=== PATIENT | female | born 1975 | race Two or more races ===

== ENCOUNTER 2021-07-29 17:36 | Emergency (ER) | payer MEDICAID, OTHER ==
[~2021-07-29] VITALS: Ht 162.6 cm; Wt 108.9 kg
[2021-07-29 17:44] VITALS: BP 151/98
== END 2021-07-29 18:52 | disposition left against medical advice (07) ==
LOC: ER 18:03
DX: Z53.21 Procedure and treatment not carried out due to patient leaving prior to being seen by health care provider

== ENCOUNTER 2023-11-08 02:57 | Inpatient (IN) | payer MEDICAID ==
[~2023-11-08] VITALS: Ht 162.6 cm; Wt 106.2 kg
[2023-11-08 03:54] LABS: Basophils # (auto) 0.1 10 ^3/uL (0-0.2); Eosinophils # (auto) 0.1 10 ^3/uL (0-0.8); Eosinophils % (auto) 2.3 % (0.0-7.0); Hemoglobin 10.7 g/dL (12.2-16.2); Mean Corpuscular Hemoglobin 24.6 pg (28.0-32.0); Monocytes # (auto) 0.5 10 ^3/uL (0-1.3); Neutrophils # (auto) 2.8 10 ^3/uL (1.6-8.6)
[2023-11-08 03:57] LABS: Basophils % (auto) 1.4 % (0.0-2.0); Lymphocytes # (auto) 2.8 10 ^3/uL (0.4-5.4); Lymphocytes % (auto) 43.7 % (10.0-50.0); Mean Corpuscular Hgb Conc. 31.4 g/dL (32.0-36.0); Mean Corpuscular Volume 78.3 fL (80.0-100.0); Monocytes % (auto) 7.9 % (0.0-12.0); Neutrophils % (auto) 44.7 % (37.0-80.0); Nucleated Red Blood Cells % 0.1 %; Red Blood Cells 4.34 10^6/uL (4.0-5.20); White Blood Cell 6.3 10^3/uL (4.4-10.8)
[2023-11-08 04:04] LABS: Alanine Aminotransferase 57 U/L (7-40); Alkaline Phosphatase 75 U/L (46-116); Anion Gap 8 (5-15); Calcium 9.5 mg/dL (8.7-10.4); Carbon Dioxide 24 mmol/L (20-30); Chloride 101 mmol/L (98-107); Glucose 305 mg/dL (74-106); Potassium 3.7 mmol/L (3.5-5.1); Sodium 133 mmol/L (136-145)
[2023-11-08 04:05] LABS: Albumin 4.4 g/dL (3.2-4.8); Aspartate Aminotransferase 61 U/L (13-40); Bilirubin, Total 0.5 mg/dL (0.2-1.0); Total Protein 7.7 g/dL (5.7-8.2)
[2023-11-08 04:11] LABS: BUN/Creatinine Ratio 6.6 (10.0-20.0); Blood Urea Nitrogen < 5 mg/dL (9-23)
[2023-11-08 06:20] LABS: INR 1.05 (0.9-1.15); Partial Thromboplastin Time 24.7 SEC (24.5-34.5); Prothrombin Time 11.1 sec (9.3-11.8)
[2023-11-08 07:48] LABS: Urine Bacteria None Seen /hpf (None Seen)
[2023-11-08 07:58] LABS: Urine Blood 3+ /uL (Negative); Urine Clarity Clear (Clear); Urine Color Light-Yellow (Yellow); Urine Protein, UAD Negative (Negative); Urine Specific Gravity 1.016 (1.001-1.035); Urine Urobilinogen Normal (Negative); Urine WBC 3 /hpf (0 - 5)
[2023-11-08] MEDS: metroNIDAZOLE 500MG/100ML 100 ML IV ONE (08:45)
[2023-11-08] MEDS: cefTRIAXone 1GM/50ML D5W 50 ML IV ONE (08:45)
[2023-11-08] MEDS: SODIUM CHLORIDE 0.9% 1,000 ML IV SCH (08:45)
[2023-11-08] MEDS: cefTRIAXone 1GM/50ML D5W 50 ML IV SCH (09:00)
[2023-11-08 09:14] VITALS: PULSE 79; RESP 12; O2SAT 98
[2023-11-08] MEDS: metroNIDAZOLE 500MG/100ML 100 ML IV SCH (14:03)
[2023-11-08 19:35] VITALS: PULSE 78; RESP 14; O2SAT 98
[2023-11-08] MEDS: ONDANSETRON HCL 4 MG/2 ML VIAL IV PRN (20:13)
[2023-11-08] MEDS: MORPHINE SULFATE INJ 2 MG/ml SYRG IV PRN (20:13)
[2023-11-08 20:53] VITALS: RESP 20; O2SAT 97
[2023-11-08] MEDS: HYDROcodone-ACET 5/325MG TAB PO PRN (23:16)
[2023-11-09] VITALS (8 sets, daily range): BP systolic 103–151; BP diastolic 63–89; PULSE 63–82; RESP 16–18; TEMP 97.2–98.3; O2SAT 0–98
[2023-11-09 06:15] LABS: Basophils # (auto) 0.1 10 ^3/uL (0-0.2); Eosinophils # (auto) 0.2 10 ^3/uL (0-0.8); Lymphocytes # (auto) 2.6 10 ^3/uL (0.4-5.4); Monocytes # (auto) 0.4 10 ^3/uL (0-1.3); Neutrophils # (auto) 2.1 10 ^3/uL (1.6-8.6); Neutrophils % (auto) 38.7 % (37.0-80.0); Red Cell Distribution Width 16.2 % (11.8-14.3)
[2023-11-09 06:17] LABS: Basophils % (auto) 1.8 % (0.0-2.0); Eosinophils % (auto) 3.4 % (0.0-7.0); Hemoglobin 9.5 g/dL (12.2-16.2); Lymphocytes % (auto) 48.3 % (10.0-50.0); Mean Corpuscular Hemoglobin 24.2 pg (28.0-32.0); Mean Corpuscular Hgb Conc. 30.6 g/dL (32.0-36.0); Mean Corpuscular Volume 79.2 fL (80.0-100.0); Monocytes % (auto) 7.8 % (0.0-12.0); Red Blood Cells 3.91 10^6/uL (4.0-5.20); White Blood Cell 5.3 10^3/uL (4.4-10.8)
[2023-11-09 06:28] LABS: Alanine Aminotransferase 47 U/L (7-40); Albumin 3.6 g/dL (3.2-4.8); Alkaline Phosphatase 59 U/L (46-116); Anion Gap 7 (5-15); Aspartate Aminotransferase 59 U/L (13-40); Calcium 8.7 mg/dL (8.7-10.4); Carbon Dioxide 23 mmol/L (20-30); Chloride 104 mmol/L (98-107); Glucose 235 mg/dL (74-106); Lipase 49 U/L (12-53); Potassium 3.7 mmol/L (3.5-5.1); Sodium 134 mmol/L (136-145)
[2023-11-09 06:29] LABS: Bilirubin, Total 0.7 mg/dL (0.2-1.0); Total Protein 6.4 g/dL (5.7-8.2)
[2023-11-09 06:33] LABS: BUN/Creatinine Ratio 8.3 (10.0-20.0); Blood Urea Nitrogen < 5 mg/dL (9-23)
[2023-11-10] VITALS (8 sets, daily range): BP systolic 120–158; BP diastolic 80–96; PULSE 63–86; RESP 14–18; TEMP 97.8–98.2; O2SAT 95–99
[2023-11-10 06:11] LABS: Basophils # (auto) 0.1 10 ^3/uL (0-0.2); Eosinophils # (auto) 0.1 10 ^3/uL (0-0.8); Monocytes # (auto) 0.4 10 ^3/uL (0-1.3); Neutrophils # (auto) 1.9 10 ^3/uL (1.6-8.6); Red Blood Cells 3.68 10^6/uL (4.0-5.20); White Blood Cell 4.4 10^3/uL (4.4-10.8)
[2023-11-10 06:14] LABS: Basophils % (auto) 1.4 % (0.0-2.0); Eosinophils % (auto) 3.4 % (0.0-7.0); Hematocrit 28.9 % (36.0-46.0); Hemoglobin 8.8 g/dL (12.2-16.2); Lymphocytes # (auto) 1.9 10 ^3/uL (0.4-5.4); Lymphocytes % (auto) 42.8 % (10.0-50.0); Mean Corpuscular Hgb Conc. 30.6 g/dL (32.0-36.0); Mean Corpuscular Volume 78.5 fL (80.0-100.0); Monocytes % (auto) 8.9 % (0.0-12.0); Neutrophils % (auto) 43.5 % (37.0-80.0); Nucleated Red Blood Cells % 0.1 %; Red Cell Distribution Width 16.3 % (11.8-14.3)
[2023-11-10 06:24] LABS: Alanine Aminotransferase 56 U/L (7-40); Albumin 3.4 g/dL (3.2-4.8); Alkaline Phosphatase 56 U/L (46-116); Anion Gap 5 (5-15); Aspartate Aminotransferase 73 U/L (13-40); Calcium 8.5 mg/dL (8.7-10.4); Carbon Dioxide 25 mmol/L (20-30); Chloride 107 mmol/L (98-107); Glucose 221 mg/dL (74-106); Magnesium 1.6 mg/dL (1.6-2.6); Potassium 3.8 mmol/L (3.5-5.1); Sodium 137 mmol/L (136-145)
[2023-11-10 06:25] LABS: Bilirubin, Total 0.6 mg/dL (0.2-1.0)
[2023-11-10 06:33] LABS: BUN/Creatinine Ratio 9.1 (10.0-20.0); Blood Urea Nitrogen < 5 mg/dL (9-23)
[2023-11-10] MEDS ORDERED: DEXTROSE (50%) 50ML SYRG IV PRN (12:00)
[2023-11-10] MEDS: PANTOPRAZOLE 40 MG TAB PO ONE (12:56)
[2023-11-10] MEDS: metFORMIN HYDROCHLORIDE 500 MG TAB PO ONE (12:57)
[2023-11-10] MEDS: metFORMIN HYDROCHLORIDE 500 MG TAB PO SCH (16:31)
[2023-11-10] MEDS: InsuLIN REG 1unit/0.01ml Soln (100units/ml) SC SCH (16:32)
[2023-11-10] MEDS: ACCU-CHEK COMFORT CURVE STRIP VI SCH (16:33)
[2023-11-11] VITALS (8 sets, daily range): BP systolic 121–156; BP diastolic 68–91; PULSE 60–96; RESP 14–18; TEMP 97.7–98.8; O2SAT 93–99
[2023-11-11] MEDS: PANTOPRAZOLE 40 MG TAB PO SCH (09:51)
[2023-11-11] MEDS: DOCUSATE SOD 100 MG CAP PO ONE (14:57)
[2023-11-11] MEDS: LISINOPRIL 5 MG TAB PO ONE (14:58)
[2023-11-11] MEDS: LACTULOSE 20Gm/30ML SOLN PO ONE (14:58)
[2023-11-11] MEDS: metFORMIN HYDROCHLORIDE 500 MG TAB PO SCH (17:21)
[2023-11-11] MEDS: DOCUSATE SOD 100 MG CAP PO SCH (21:38)
[2023-11-12] VITALS (7 sets, daily range): BP systolic 101–145; BP diastolic 48–83; PULSE 60–81; RESP 14–18; TEMP 97.8–98.6; O2SAT 93–100
[2023-11-12] MEDS: LISINOPRIL 5 MG TAB PO SCH (08:34)
[2023-11-12] MEDS: DOCUSATE SOD 100 MG CAP PO PRN (15:23)
[2023-11-13 05:00] VITALS: BP 128/75; PULSE 74; RESP 16; TEMP 98; O2SAT 100
[2023-11-13] MEDS ORDERED: METF-372 PO (11:34)
[2023-11-13] MEDS ORDERED: METR-344 PO (11:34)
[2023-11-13] MEDS ORDERED: LEVO500T91 PO (11:34)
[2023-11-13] MEDS ORDERED: FERR-7 PO (11:34)
[2023-11-13 11:51] VITALS: BP 138/80; TEMP 36.7
== END 2023-11-13 13:45 | disposition home or self-care (01) ==
LOC: ER 02:57 → EDBD 02:57 → OVERFLOW 09:40 → WEST WING 20:51
PROVIDERS: ADMIT Nurse Practitioner Family; ATTEND Internal Medicine Geriatric Medicine
DX: K80.20 Calculus of gallbladder without cholecystitis without obstruction (principal); K85.90 Acute pancreatitis without necrosis or infection, unspecified; K76.0 Fatty (change of) liver, not elsewhere classified; E11.65 Type 2 diabetes mellitus with hyperglycemia; D50.9 Iron deficiency anemia, unspecified; E66.9 Obesity, unspecified; E86.0 Dehydration; I10 Essential (primary) hypertension; K59.00 Constipation, unspecified; R74.01 Elevation of levels of liver transaminase levels; Z68.41 Body mass index [BMI] 40.0-44.9, adult; Z90.49 Acquired absence of other specified parts of digestive tract; Z83.3 Family history of diabetes mellitus; Z82.49 Family history of ischemic heart disease and other diseases of the circulatory system
CPT/HCPCS: 36415; 71045; 74176; 76700; 78226; 80053; 81001; 81025; 82270; 82962; 83036; 83605; 83690; 83735; 85025; 85610; 85730; 86850; 86900; 86901; 87040; 96365; 96368; G0378; J1815; J2405; J3490